=== PATIENT | female | born 1940 | race Caucasian/White ===

== ENCOUNTER 2017-01-04 21:44 | Emergency (ER) | payer OTHER ==
[2017-01-04 23:56] VITALS: BP 144/73
== END 2017-01-04 23:56 | disposition home or self-care (01) ==
LOC: ED 21:44
DX: S09.90XA Unspecified injury of head, initial encounter (principal); R42 Dizziness and giddiness; I10 Essential (primary) hypertension; Z79.82 Long term (current) use of aspirin; Z79.899 Other long term (current) drug therapy; W01.0XXA Fall on same level from slipping, tripping and stumbling without subsequent striking against object, initial encounter; Y93.89 Activity, other specified; Y92.89 Other specified places as the place of occurrence of the external cause; Y99.8 Other external cause status